=== PATIENT | female | born 1960 | race Caucasian/White ===

== ENCOUNTER → 2016-07-06 | Outpatient (CLI) | payer OTHER ==
--- NOTE | 2016-07-06 21:59 | REP ---
TWO VIEW CHEST: Two views of the chest are performed and compared to prior study of 04/29/2014. There is no acute infiltrate. The heart is normal in size. The mediastinal silhouette is unchanged. There is curvature of the thoracic spine convex to the right. IMPRESSION: No acute pulmonary disease. Signed by Yanick Bains MD 07/07/2016 04:08 P
== END ==
LOC: M RAD 17:55
PROVIDERS: ATTEND Physician Assistant Medical
DX: R06.9 Unspecified abnormalities of breathing (principal)

== ENCOUNTER → 2017-01-01 | Outpatient (CLI) | payer OTHER ==
--- NOTE | 2017-01-01 14:33 | REP ---
BILATERAL MAMMOGRAM: Bilateral mammography was performed in the MLO and CC projections and compared to multiple prior exams, the most recent of which is 12/30/2015. The breast parenchyma is moderately dense. This limits the sensitivity of the mammogram. No definite mass or architectural distortion is seen. Questionable tiny microcalcifications are seen medially on the left CC view, not definitely seen on the left MLO view. IMPRESSION: ACR 0 incomplete. Moderately dense breast parenchymal limits the sensitivity of the mammogram. Possible tiny calcifications are seen medially in the left breast. Recommend magnification views of the left breast for further evaluation. Given the family history and moderately dense breast parenchyma, MRI of the breasts is suggested. BI-RADS/ACR category 0 mammogram, incomplete. Additional imaging and/or prior images are needed before a final assessment can be assigned. This mammogram was interpreted with the aid of an FDA-approved computer-aided detection system. A. Negative x-ray reports should not delay biopsy if a dominant or clinically suspicious mass is present. B. Four to eight percent of cancers are not identified by x-ray. C. Adenosis and dense breasts may obscure an underlying neoplasm. The patient states she/he had a clinical breast exam in December 2016. The patient letter being requested is M0.
--- NOTE | 2017-01-01 15:12 | REP ---
Pelvic ultrasound with transabdominal balloon and endovaginal imaging. Balloon The bladder is adequately distended. The uterus is retroverted and atrophic size measuring 5.1 x 2.4 x 4.3 cm. The endometrium is not thickened measuring 4.4 mm. The ovaries are atrophic size. Right ovary measures 1.7 x 0.8 x 1.5 cm. Left ovary measures 1.8 x 1.0 x 0.97 cm. There are no ovarian masses or cysts. There is no free fluid in the pelvis. Impression: Essentially negative pelvic ultrasound.
== END ==
LOC: M WHC 12:54
PROVIDERS: ATTEND Specialist
DX: N95.0 Postmenopausal bleeding (principal); Z12.31 Encounter for screening mammogram for malignant neoplasm of breast
CPT/HCPCS: 76830; 76856; G0202

== ENCOUNTER → 2017-01-05 | Outpatient (CLI) | payer OTHER ==
--- NOTE | 2017-01-05 09:49 | REP ---
DIAGNOSTIC MAMMOGRAM LEFT BREAST: Diagnostic mammogram left breast performed with multiple magnification views obtained. Correlation made with a recent mammogram of 01/01/2017. There were possible tiny calcifications seen immediately on the right CC view. Today's magnification views show no evidence of suspicious clustered microcalcifications in that region. IMPRESSION: ACR 2 benign. No evidence of suspicious clustered microcalcifications in the medial left breast on today's magnification views. Recommend followup mammogram in 1 year. BI-RADS/ACR category 2 mammogram. Benign finding(s). Routine annual screening mammography (for women over age 40). The patient letter being requested is M1. Signed by Yanick Bains MD 01/05/2017 05:06 P
== END ==
LOC: M RAD 08:47
PROVIDERS: ATTEND Specialist
DX: R92.1 Mammographic calcification found on diagnostic imaging of breast (principal); R92.2 Inconclusive mammogram

== ENCOUNTER 2017-11-02 23:05 | Emergency (ER) | payer OTHER ==
[2017-11-03] MEDS: NS 1,000 ML IV (00:15)
[2017-11-03 00:47] LABS: ALBUMIN 4.3 GM/DL (3.2-5.2); ALBUMIN/GLOBULIN RATIO 1.43 (1.00-1.93); ALKALINE PHOSPHATASE 91 U/L (45-117); ALT/SGPT 55 U/L (12-78); ANION GAP 5 MEQ/L (8-16); AST/SGOT 52 U/L (7-37); BILIRUBIN,DIRECT < 0.1 MG/DL (0.0-0.2); BILIRUBIN,TOTAL 0.3 MG/DL (0.2-1.0); BLOOD UREA NITROGEN 14 MG/DL (7-18); CALCIUM LEVEL 9.4 MG/DL (8.5-10.1); CARBON DIOXIDE LEVEL 31 MEQ/L (21-32); CHLORIDE LEVEL 105 MEQ/L (98-107); GLOMERULAR FILTRATION RATE > 60.0 (>51); GLUCOSE, FASTING 97 MG/DL (70-100); LIPASE 98 U/L (73-393); POTASSIUM SERUM 3.7 MEQ/L (3.5-5.1); SODIUM LEVEL 141 MEQ/L (136-145); TOTAL PROTEIN 7.3 GM/DL (6.4-8.2)
[2017-11-03 00:53] LABS: BASO # 0.1 10^3/uL (0.0-0.2); BASO % 0.7 % (0.0-1.0); EOS # 0.3 10^3/uL (0.0-0.50); EOS % 2.5 % (0.0-3.0); HEMATOCRIT 38.3 % (36.0-47.0); IMMATURE GRANULOCYTE % 0.4 % (0-3.0); LYMPH # 1.4 10^3/uL (1.5-4.5); LYMPH % 13.7 % (24.0-44.0); MEAN CORPUSCULAR HEMOGLOBIN 30.2 pg (27.0-33.0); MEAN CORPUSCULAR HGB CONC 33.9 g/dl (32.0-36.5); MEAN CORPUSCULAR VOLUME 89.1 fl (80.0-96.0); MONO # 0.6 10^3/uL (0.0-0.8); MONO % 5.6 % (0.0-5.0); NEUTROPHILS % 77.1 % (36.0-66.0); PLATELET COUNT, AUTOMATED 320 10^3/uL (150-450); RED CELL DISTRIBUTION WIDTH 12.4 % (11.5-14.5); WHITE BLOOD COUNT 10.4 10^3/uL (4.0-10.0)
[2017-11-03] MEDS: METOCLOPRAMIDE INJ 10MG/2ML VIAL (J2765) IV (01:59)
== END 2017-11-03 02:48 | disposition home or self-care (01) ==
LOC: M ED 23:05
DX: K52.9 Noninfective gastroenteritis and colitis, unspecified (principal); F32.9 Major depressive disorder, single episode, unspecified; Z79.899 Other long term (current) drug therapy
CPT/HCPCS: J2765

== ENCOUNTER → 2018-06-12 | Outpatient (CLI) | payer OTHER ==
[~2018-06-12] MED LIST: SERT-138
--- NOTE | 2018-06-12 10:12 | REPMRS ---
Patient History The patient states she had a clinical breast exam in 01/12 Family history of breast cancer at age 46 in sister, breast cancer at age 50 or over in sister, breast cancer at age 98 in maternal grandmother. Digital Woman Screen Mammo: June 12, 2018 - Exam #: [id number] Bilateral CC and MLO view(s) were taken. Technologist: Jenn Shukla, Technologist Prior study comparison: January 01, 2017, digital woman screen mammo performed at [facility]. December 30, 2015, digital woman screen mammo performed at [facility]. December 28, 2014, digital woman screen mammo performed at [facility]. FINDINGS: The breast tissue is heterogeneously dense. This may lower the sensitivity of mammography. There is a moderate amount of heterogeneously dense fibroglandular tissue which is fairly symmetric. There is no interval development of dominant mass, architectural distortion, or clustered microcalcification typical of malignancy. There has been no change in the appearance of the mammogram from the prior studies. 3-D tomosynthesis shows no additional findings. Assessment: BI-RADS/ACR category 1 mammogram. Negative. Recommendation Breast MRI of both breasts in 6 months. Routine screening mammogram of both breasts in 1 year (for women over age 40). This patient's Lifetime Breast Cancer RIsk is estimated at 25.1 %. Annual screening Breast MRI scanniing is recommended for patient's whose lifetime risk assessment is over 20%. This mammogram was interpreted with the aid of an FDA-approved computer-aided dectection system. Electronically Signed By: Aric Pearce MD 06/12/18 [id number]
== END ==
LOC: M WHC 08:53
PROVIDERS: ATTEND Specialist
DX: Z12.31 Encounter for screening mammogram for malignant neoplasm of breast (principal)

== ENCOUNTER → 2020-04-14 | Outpatient (CLI) | payer OTHER ==
--- NOTE | 2020-04-14 15:20 | REPMRS ---
Patient History The patient states she had a clinical breast exam in December 2019. Family history of breast cancer at age 46 in sister, breast cancer at age 50 or over in sister, breast cancer at age 98 in maternal grandmother. 3D TOMOSYNTHESIS WAS PERFORMED. Kate breast density c. Digital Woman Screen Mammo: April 14, 2020 - Exam #: [id number] Bilateral CC and MLO view(s) were taken. Technologist: RT Guerita Prior study comparison: June 12, 2018, bilateral digital woman screen mammo performed at [facility]. January 05, 2017, left breast digital mammo diagnostic unilateral, performed at [facility]. FINDINGS: The breast tissue is heterogeneously dense. This may lower the sensitivity of mammography. There has been no change in the appearance of the mammogram from the prior studies. There is a moderate amount of residual fibroglandular tissue which is fairly symmetric. There is no interval development of dominant mass, areas of architectural distortion, or clustered microcalcification typical of malignancy. Assessment: BI-RADS/ACR category 1 mammogram. Negative Mammogram. Recommendation Routine screening mammogram in 1 year (for women over age 40). This mammogram was interpreted with the aid of an FDA-approved computer-aided dectection system. THE LIFETIME RISK OF BREAST CANCER IS 23.8%, THEREFORE SUPPLEMENTAL SCREENING MRI OF THE BREASTS IS RECOMMENDED IN 6 MONTHS. Electronically Signed By: Yanick Bains MD 04/14/20 [id number]
== END ==
LOC: M WHC 12:59
PROVIDERS: ATTEND Specialist
DX: Z12.31 Encounter for screening mammogram for malignant neoplasm of breast (principal); Z15.01 Genetic susceptibility to malignant neoplasm of breast

== ENCOUNTER → 2022-03-09 | Outpatient (CLI) | payer OTHER | LOC: M WHC 13:49 | PROVIDERS: ATTEND Specialist | DX: Z12.31 Encounter for screening mammogram for malignant neoplasm of breast (principal) ==

== ENCOUNTER → 2022-03-09 | Outpatient (CLI) | payer OTHER ==
[2022-03-09 15:35] LABS: BASO # 0.1 10^3/uL (0.0-0.2); BASO % 1.7 % (0.0-1.0); EOS # 0.3 10^3/uL (0.0-0.5); EOS % 5.7 % (0.0-3.0); HEMATOCRIT 40.1 % (36.0-47.0); HEMOGLOBIN 13.2 g/dl (12.0-15.5); LYMPH # 2.1 10^3/uL (1.5-5.0); MEAN CORPUSCULAR HEMOGLOBIN 30.6 pg (27.0-33.0); MEAN CORPUSCULAR HGB CONC 32.9 g/dl (32.0-36.5); MONO # 0.4 10^3/uL (0.0-0.8); MONO % 8.6 % (2.0-8.0); NEUTROPHILS % 40.8 % (36.0-66.0); PLATELET COUNT, AUTOMATED 367 10^3/uL (150-450); RED BLOOD COUNT 4.31 10^6/uL (4.00-5.40); WHITE BLOOD COUNT 4.8 10^3/uL (4.0-10.0)
[2022-03-09 16:44] LABS: ALBUMIN 4.3 GM/DL (3.2-5.2); ALT/SGPT 34 U/L (12-78); BILIRUBIN,TOTAL 0.3 MG/DL (0.2-1.0); BLOOD UREA NITROGEN 12 MG/DL (7-18); CARBON DIOXIDE LEVEL 30 MEQ/L (21-32); CHLORIDE LEVEL 104 MEQ/L (98-107); CREATININE FOR GFR 0.76 MG/DL (0.55-1.30); FREE T4 1.06 NG/DL (0.76-1.46); GLOMERULAR FILTRATION RATE > 60.0 (>45); GLUCOSE, FASTING 87 MG/DL (70-100); SODIUM LEVEL 137 MEQ/L (136-145); TOTAL PROTEIN 7.7 GM/DL (6.4-8.2)
[2022-03-09 17:32] LABS: TOTAL 25(OH) VITAMIN D 43.2 NG/ML (30.0-100.0)
== END ==
LOC: M PLALAB 13:55
PROVIDERS: ATTEND Specialist
DX: E03.9 Hypothyroidism, unspecified (principal)

== ENCOUNTER → 2022-03-16 | Outpatient (CLI) | payer OTHER | LOC: M WHC 14:00 | PROVIDERS: ATTEND Specialist | DX: R92.8 Other abnormal and inconclusive findings on diagnostic imaging of breast (principal) ==

== ENCOUNTER → 2022-06-07 | Outpatient (CLI) | payer OTHER | LOC: M WHC 10:57 | PROVIDERS: ATTEND Specialist | DX: R92.8 Other abnormal and inconclusive findings on diagnostic imaging of breast (principal) ==

== ENCOUNTER → 2022-10-24 | Outpatient (CLI) | payer OTHER | LOC: M WHC 12:52 | PROVIDERS: ATTEND Specialist | DX: R92.8 Other abnormal and inconclusive findings on diagnostic imaging of breast (principal) ==

== ENCOUNTER → 2025-04-30 | Outpatient (CLI) | payer OTHER | LOC: M WHC 14:02 | PROVIDERS: ATTEND Specialist | DX: M81.0 Age-related osteoporosis without current pathological fracture (principal) ==